=== PATIENT | female | born 2000 | race Caucasian/White ===

== ENCOUNTER 2022-08-07 21:48 | Emergency (ER) | payer BC ==
[~2022-08-07] VITALS: Ht 170 cm; Wt 129.7 kg
[2022-08-07 23:19] LABS: BASOPHILS % (AUTO) 0 % (0-10); EOSINOPHILS # (AUTO) 0.1 10^3/uL (0.0-0.3); EOSINOPHILS % (AUTO) 1 % (0-10); HEMATOCRIT 31 % (35-52); HEMOGLOBIN 9.8 g/dL (11.5-16.0); LYMPHOCYTES # (AUTO) 2.6 10^3/uL (1.0-4.0); LYMPHOCYTES % (AUTO) 26 % (12-44); MEAN CORPUSCULAR HEMOGLOBIN 23 pg (25-34); MEAN CORPUSCULAR HGB CONC 32 g/dL (32-36); MEAN CORPUSCULAR VOLUME 72 fL (80-99); MEAN PLATELET VOLUME 9.5 fL (9.0-12.2); MONOCYTES # (AUTO) 0.6 10^3/uL (0.0-1.0); MONOCYTES % (AUTO) 6 % (0-12); NEUTROPHILS # (AUTO) 6.6 10^3/uL (1.8-7.8); NEUTROPHILS % (AUTO) 67 % (42-75); PLATELET COUNT 264 10^3/uL (130-400)
[2022-08-07] MEDS ORDERED: ONDANSETRON 4 MG/2 ML (SDV) Z0FRAN IVP ONE (23:30)
[2022-08-07 23:31] LABS: ALBUMIN 3.7 GM/DL (3.2-4.5); POTASSIUM 3.9 MMOL/L (3.6-5.0)
[2022-08-07 23:33] LABS: CALCIUM 9.3 MG/DL (8.5-10.1); PROTHROMBIN TIME PATIENT 13.9 SEC (12.2-14.7)
[2022-08-07 23:34] LABS: TOTAL PROTEIN 6.8 GM/DL (6.4-8.2)
[2022-08-07 23:36] LABS: BILIRUBIN,TOTAL 0.4 MG/DL (0.1-1.0)
[2022-08-07 23:37] LABS: CREATININE SERUM 0.83 MG/DL (0.60-1.30)
[2022-08-08] LABS: TSH (THYROID ANALYZER) 5.94 UIU/ML (0.35-4.94)
[2022-08-08] MEDS ORDERED: NS IV 1000 ML 1,000 ML IV SCH
[2022-08-08] MEDS ORDERED: NORE0.3536 PO (00:01)
[2022-08-08] MEDS ORDERED: ONDA8TAB13 PO (00:01)
--- NOTE | 2022-08-08 00:01 | ED GU-Female ---
General Chief Complaint: - Reproductive Stated Complaint: VAG BLEEDING Nursing Triage Note: Pt presents with c/o heavy vaginal bleeding. Pt states that she started her period on 07/20/22 and she was started on control that day to help regulate her periods. She states that she has not stopped bleeding since 07/20 and today it started becoming heavier, she states she's been going through approx 3 pads per hour. Pt denies hx. Source: patient, mother Allergies and Home Medications Allergies Coded Allergies: No Known Drug Allergies (Unverified , 08/07/22) Patient Home Medication List Norethindrone (Ortho Micronor) 0.35 Mg Tablet, 4 TAB PO DAILY Prescribed by: YEHUDA DONNELLY on 08/08/22 0001 Ondansetron (Ondansetron Odt) 8 Mg Tab.rapdis, 8 MG PO Q6H Prescribed by: YEHUDA DONNELLY on 08/08/22 0001 Past Uiffrje-Mnkpoa-Ufxdka Hx Immunizations Up To Date Influenza Vaccine Up-to-Date: Yes; Up-to-Date Past Medical History Last Menstrual Period: Jul 20, 2022 Physical Exam Vital Signs Vital Signs - First Documented 08/07/22 22:10 Temp 36.9 Pulse 113 Resp 16 B/P (MAP) 116/89 (98) Capillary Refill : Less Than 3 Seconds Height, Weight, BMI Height: '" Weight: lbs. oz. kg; 44.00 BMI Method: Progress/Results/Core Measures Suspected Sepsis SIRS Temperature: Pulse: 113 Respiratory Rate: 16 Laboratory Tests 08/07/22 23:10: White Blood Count 10.0 08/08/22 01:40: White Blood Count 10.3 Blood Pressure 116 /89 Mean: 98 Laboratory Tests 08/07/22 23:10: Creatinine 0.83, INR Comment 1.0, Platelet Count 264, Total Bilirubin 0.4 08/08/22 01:40: Platelet Count 282 Results/Orders Lab Results Laboratory Tests Test 08/07/22 23:10 08/08/22 01:40 Range/Units White Blood Count 10.0 10.3 4.3-11.0 10^3/uL Red Blood Count 4.32 3.93 3.80-5.11 10^6/uL Hemoglobin 9.8 L 8.9 L 11.5-16.0 g/dL Hematocrit 31 L 29 L 35-52 % Mean Corpuscular Volume 72 L 73 L 80-99 fL Mean Corpuscular Hemoglobin 23 L 23 L 25-34 pg Mean Corpuscular Hemoglobin Concent 32 31 L 32-36 g/dL Red Cell Distribution Width 14.8 H 14.8 H 10.0-14.5 % Platelet Count 264 282 130-400 10^3/uL Mean Platelet Volume 9.5 9.7 9.0-12.2 fL Immature Granulocyte % (Auto) 0 % Neutrophils (%) (Auto) 67 42-75 % Lymphocytes (%) (Auto) 26 12-44 % Monocytes (%) (Auto) 6 0-12 % Eosinophils (%) (Auto) 1 0-10 % Basophils (%) (Auto) 0 0-10 % Neutrophils # (Auto) 6.6 1.8-7.8 10^3/uL Lymphocytes # (Auto) 2.6 1.0-4.0 10^3/uL Monocytes # (Auto) 0.6 0.0-1.0 10^3/uL Eosinophils # (Auto) 0.1 0.0-0.3 10^3/uL Basophils # (Auto) 0.0 0.0-0.1 10^3/uL Immature Granulocyte # (Auto) 0.0 0.0-0.1 10^3/uL Prothrombin Time 13.9 12.2-14.7 SEC INR Comment 1.0 0.8-1.4 Activated Partial Thromboplast Time 34 24-35 SEC Sodium Level 137 135-145 MMOL/L Potassium Level 3.9 3.6-5.0 MMOL/L Chloride Level 108 H 98-107 MMOL/L Carbon Dioxide Level 20 L 21-32 MMOL/L Anion Gap 9 5-14 MMOL/L Blood Urea Nitrogen 10 7-18 MG/DL Creatinine 0.83 0.60-1.30 MG/DL Estimat Glomerular Filtration Rate 104 BUN/Creatinine Ratio 12 Glucose Level 90 70-105 MG/DL Calcium Level 9.3 8.5-10.1 MG/DL Corrected Calcium 9.5 8.5-10.1 MG/DL Total Bilirubin 0.4 0.1-1.0 MG/DL Aspartate Amino Transf (AST/SGOT) 27 5-34 U/L Alanine Aminotransferase (ALT/SGPT) 35 0-55 U/L Alkaline Phosphatase 73 40-136 U/L Total Protein 6.8 6.4-8.2 GM/DL Albumin 3.7 3.2-4.5 GM/DL Free Thyroxine 0.92 0.70-1.48 NG/DL TSH [place] Testing 5.94 H 0.35-4.94 UIU/ML Serum Test, Qualitative NEGATIVE NEGATIVE My Orders Orders - YEHUDA DONNELLY DO Ed Iv/Invasive Line Start (08/07/22 22:31) Cbc With Automated Diff (08/07/22 22:31) Comprehensive Metabolic Panel (08/07/22 22:31) Hcg,Qualitative Serum (08/07/22 22:31) Protime With Inr (08/07/22 22:31) Partial Thromboplastin Time (08/07/22 22:31) Thyroid Analyzer (08/07/22 22:44) Ondansetron Injection (Zofran Injectio (08/07/22 23:30) Ed Iv/Invasive Line Start (08/07/22 23:57) Ns Iv 1000 Ml (Sodium Chloride 0.9%) (08/08/22 00:00) Free T4 (Free Thyroxine) (08/07/22 23:10) Cbc No Diff (08/08/22 01:13) Medications Given in ED Current Medications Medications Dose Ordered Sig/Cam Route Start Time Stop Time Status Last Admin Dose Admin Ondansetron HCl 8 mg ONCE ONCE IVP 08/07/22 23:30 08/07/22 23:31 DC 08/07/22 23:35 8 MG Vital Signs/I&O 08/07/22 22:10 Temp 36.9 Pulse 113 Resp 16 B/P (MAP) 116/89 (98) Capillary Refill : Less Than 3 Seconds Blood Pressure Mean: 98 Departure Impression Primary Impression: Menometrorrhagia Disposition: HOME, SELF-CARE Condition: Stable Departure-Patient Inst. Decision time for Depature: 23:57 Referrals: NO,LOCAL PHYSICIAN (PCP/Family) Primary Care Physician Patient Instructions: Heavy Periods (DC) Add. Discharge Instructions: LOTS OF FLUIDS KEEP AN ACCURATE PAD COUNT--RETURN TO ER IF YOU ARE SOAKING MORE THAN 1 MAXI PAD AN HOUR. FOLLOW UP WITH YOUR MANAGER TECHNICAL SUPPORT ON TUESDAY FOR FURTHER CARE, RETURN TO ER IF WORSE All discharge instructions reviewed with patient and/or family. Voiced und erstanding. Scripts Ondansetron (Ondansetron Odt) 8 Mg Tab.rapdis 8 MG PO Q6H, #15 TAB Prov: YEHUDA DONNELLY DO 08/08/22 Norethindrone (Ortho Micronor) 0.35 Mg Tablet 4 TAB PO DAILY for 5 Days, #1 UNIT Prov: YEHUDA DONNELLY DO 08/08/22 YEHUDA DONNELLY DO Aug 08, 2022 00:01
[2022-08-08 00:51] LABS: FREE T4 (FREE THYROXINE) 0.92 NG/DL (0.70-1.48)
[2022-08-08 02:02] LABS: HEMATOCRIT 29 % (35-52); HEMOGLOBIN 8.9 g/dL (11.5-16.0); MEAN CORPUSCULAR HEMOGLOBIN 23 pg (25-34); MEAN CORPUSCULAR HGB CONC 31 g/dL (32-36); MEAN CORPUSCULAR VOLUME 73 fL (80-99); MEAN PLATELET VOLUME 9.7 fL (9.0-12.2); PLATELET COUNT 282 10^3/uL (130-400); WHITE BLOOD COUNT 10.3 10^3/uL (4.3-11.0)
[2022-08-08] MEDS ORDERED: RX-ONDANSETRON 4 MG ODT (ZOFRAN) PPK #4 PO STA (02:11)
[2022-08-08 03:04] VITALS: BP 117/79
== END 2022-08-08 02:55 | disposition home or self-care (01) ==
LOC: EDUNIT# 21:48 → ER 21:52
DX: N92.1 Excessive and frequent menstruation with irregular cycle (principal); Z32.02 Encounter for pregnancy test, result negative
CPT/HCPCS: 36415; 80053; 84439; 84443; 84703; 85025; 85027; 85610; 85730; 96361; 96374; 99283